=== PATIENT | female | born 1980 | race Caucasian/White ===

== ENCOUNTER 2021-11-06 13:18 | Outpatient (CLI) | payer BC, OTHER, SELFPAY | END 2021-11-06 13:19 | disposition home or self-care (01) | PROVIDERS: Visit Provider Obstetrics & Gynecology | DX: Z01.812 Encounter for preprocedural laboratory examination (principal); N92.0 Excessive and frequent menstruation with regular cycle | CPT/HCPCS: 36415; 86850; 86900; 86901 ==

== ENCOUNTER 2021-11-13 00:27 | Day surgery (SDC) | payer BC, OTHER, SELFPAY ==
[2021-11-05 14:23] VITALS: BMI 31.6
--- NOTE | 2021-11-05 14:32 | PC.NURSE ---
Report to the Outpatient Waiting Room, entrance under the green pavilion located off [facility], at time _0600_ on date _[id number]_. OR Time: _0730_. - You and your visitor will be asked a series of questions to screen for COVID 19 for your protection. - Only one visitor is allowed at this time. - The patient visitor is requested to leave or wait in car when not with patient. - A mask is required within the hospital. Patients may have clear liquids (water, carbonated beverages, clear teas, apple juice) until 3 hours prior to surgery with a maximum of 20 ounces. - No food from midnight until time of surgery Take the following medications with a SIP of water the morning of surgery: __none Medications to discontinue per physician none Date to take last dose Please no make-up, nail romansh, hairspray, perfume, deodorant, or body powder the day of surgery. No jewelry (including any body piercings) or valuables the day of surgery, leave them at home. Please take a shower or bath the night before, or the morning of, surgery with an antibacterial soap. Wear comfortable, loose fitting clothing. Children are encouraged to wear pajamas. - Jewelry must be removed prior to entering the operating room. Rings and piercings that are not removed may be cut off. - The hospital will not accept responsibility for valuables. - Please leave all valuables, including medications, at home the day of surgery. If you are going home after surgery, a licensed parts delivery driver must drive you home. - NO public transportation without another adult. - We recommend that an adult stay with you for 24 hours following discharge. - We also recommend that you do not drive, make important decision, drink alcoholic beverages, or take any drugs that were not prescribed by your health care provider for at least 24 hours after your discharge time. Follow any additional instructions given to you from your surgeon. If you or anyone in your household have experienced Covid symptoms in the past week, please notify your surgeon or the nurse liaison at the phone number below for possible testing. Telephone instructions given to ____Patient and asked if any additional questions and then verbalized understanding. Patient advised to call surgeon office or pre surgery nurse liaison [phone] if any additional questions.
--- NOTE | 2021-11-12 10:16 | PCCCNOTE ---
Addendum entered by Erna Alvarado RN 11/12/21 20:36: Late entry: Discussed case with staffing account manager at 1230, she spoke with Zulema in Dr. Dunn's office, Primary denial have 7 times to set up peer to peer and leave messages which are returned after hours. Patient has tried calling with no avail. Secondary insurance has approved, Zulema to send approval via fax, Patient wants to proceed based on secondary insurance approval. Phone call received from Zulema directly at 1600 provides same information and that she has faxed over everything to care coordination office per Nova's request. Spoke with Perri in [place] she states faxes received and given to Nova. Original Note: Called to Dr. Dunn's office at [phone], spoke w/ customer service receptionist who transferred the call to Zulema the precert specialist, left vm message requesting call back regarding precert notes that precert was denied due to not being medically necessary, requested a call back and provided call back number.
--- NOTE | 2021-11-12 11:00 | WPDANESEPPF ---
Anes - Initial Pre Proc Eval Procedure: Operation Date: 11/13/21 07:30 Proposed Procedures p Total Laparoscopic Hysterectomy with Bilateral Salpingectomy - Domi Dunn MD Date/Time: 11/12/21 11:00 Surgeon: Domi Dunn MD Pre Op Diagnosis: Menorrhagia Patient Data Age: 41 Gender: F Height: 1.65 m Weight: 86.4 kg Allergies Allergy/AdvReac Type Severity Reaction Status Date / Time No Known Allergies Allergy Verified 11/13/21 06:24 Home Medications Medication Instructions Recorded Confirmed Type No Home Medications 11/05/21 11/13/21 History Patient hx anesthesia problems: none Family hx anesthesia problems: none Results Review: All pre-operative results and documents have been reviewed as part of the pre-operative evaluation. [facility] Past Medical History Medical History (Updated 11/12/21 @ 11:00 by Cedrick Jean MD) Obesity Social History Social History Years smoked: 2 Smoking status: Former smoker Tobacco type: cigarettes Living arrangements: with family Spiritual care concerns: No Anes - Eval Final PreProcedure Day of Procedure 11/12/21 11:00 Patient weight: obese Heart: regular rate and rhythm Lungs: clear to auscultation Airway: Mallampati scale class II Neurological: alert and oriented Last oral intake: >/= 8 hours ASA classification: II Emergent: no Anesthetic plan: proceed Anesthesia type and monitoring: general ETT and standard monitoring Results Review: All pre-operative results and documents have been reviewed as part of the pre-operative evaluation. Informed Consent: The patient's anesthetic plan and its attendant risks and benefits were discussed with the patient/family/POA. Questions were solicited and answers provided to the satisfaction of the patient/family/POA.
--- NOTE | 2021-11-12 20:43 | PCCCNOTE ---
Secondary Insurance Approval on file: Auth outpatient [id number]
[2021-11-13] VITALS (13 sets, daily range): BP systolic 109–139; BP diastolic 52–85; PULSE 68–108; RESP 14–22; TEMP 36.3–37.5; O2SAT 96–100
[2021-11-13] MEDS: ACETAMINOPHEN 500 MG TABLET 1000 MG PO (06:43)
[2021-11-13] MEDS: LACTATED RINGERS 1,000 ML 30 ML IV CONT ×2 (06:50→09:34)
[2021-11-13] MEDS: KETOROLAC 15 MG/ML VIAL (*BKC) IV PUSH (07:02)
--- NOTE | 2021-11-13 07:15 | WPDHPUPDATE1 ---
History and Physical Update Update Date/Time: 11/13/21 07:15 History and Physical has been reviewed, including an updated exam of the patient. There are NO changes in the patient's condition. Risks, benefits, and alternatives have been discussed and questions answered. Patient agrees to proceed with procedure.
[2021-11-13] MEDS: ceFAZolin 2 GM/D5W 50 ML 2 GM/50 ML BAG IVPB (07:29)
[2021-11-13] MEDS: ceFAZolin SODIUM 1 GM VIAL 3 GM IRRIGATION (08:47)
--- NOTE | 2021-11-13 09:16 | SUR.OPER ---
EBL: 100cc
--- NOTE | 2021-11-13 09:22 | SUR.OPER ---
URINE: 350cc
--- NOTE | 2021-11-13 09:27 | W.PM.PROC2 ---
Procedure Note - Detailed Date of Procedure 11/13/21 Pre-op Diagnosis Menorrhagia Post-op Diagnosis Same Procedure Performed Total laparoscopic hysterectomy and bilateral salpingectomy Surgeon Domi Dunn MD Anesthesia General Indications Menorrhagia Findings Normal appearing uterus and ovaries, normal-appearing tubes and pelvis. Description of Procedure This patient was taken to the operating room. She was prepped and draped in the dorsal lithotomy position after induction of general anesthesia. The uterine manipulator and Uday cup were placed. This was done with a speculum and tenaculum. The speculum was placed. The cervix was grasped with a tenaculum. The stay sutures were placed at 3 and 9:00 a.m.. The stay sutures of 0 Vicryl were brought through the appropriately sized Uday cup. The tip of the VIVIANE manipulator was placed in the intrauterine cavity. The cup was slid into place around the cervix and into the fornices. It was locked into place. The sutures were then wrapped around the handle and tied under tension. A 5 mm skin incision was made in the left upper quadrant the abdomen. A 5 mm trocar was inserted into the intrauterine cavity under direct visualization of the scope. Pneumoperitoneum was achieved. A left lower quadrant 11 mm incision was made with scalpel. An 11 mm trocar was inserted into the anterior abdominal cavity under direct visualization the scope. A 5 mm infraumbilical incision was made with a scalpel and a 5 mm trocar was inserted the intra-abdominal cavity under direct visualization of the scope. Bilateral ureteral lysis was performed. This was done from the pelvic brim down to the uterine artery. This was done with careful dissection using sharp and blunt dissection. The fallopian tubes were removed bilaterally. The mesosalpinx around the fallopian tubes were cauterized transected with LigaSure cautery. This was done in a bilateral fashion from the ovary to the uterine cornua. The fallopian tube was transected at the uterine cornu and amputated. The tube was taken out the left lower quadrant trocar site. In a stepwise fashion along the lateral aspects of the uterus the round ligament and broad ligaments were cauterized transected down to the level of the uterine arteries. A bladder flap was created in the bladder was moved distally to the end of the cervix and over the Uday cup. The bilateral uterine arteries were cauterized and transected. Colpotomy was then performed. In a circumferential fashion the vagina was transected using unipolar cautery. The incision was made down on the Uday cup. The uterus and cervix were taken out through the vagina. A pneumo occluder was placed in the vagina. The vaginal cuff was closed with a 0 V lock suture in a running fashion. The pelvis was irrigated with copious amounts antibiotic irrigation. The ureters were again examined and found to be intact and flowing freely under the uterine arteries into the bladder. The bladder was intact. It was examined directly. The vagina was irrigated with Betadine solution after removal of the Pneumo occluder. The patient was taken to recovery room. She was stable condition. Sponge lap and needle counts were correct x2. Estimated Blood Loss 100 Drains Yes Packing No Pathology Yes Complications No immediate complications Condition Stable Disposition Floor
[2021-11-13] MEDS: HYDROcodone/acetaminophen (*CRX) 5-325 MG TABLET 1 TAB PO (11:11)
[2021-11-13] MEDS: DEXTROSE 5%/0.45% SOD CHL 1,000 ML 125 ML IV CONT ×2 (11:12→18:56)
--- NOTE | 2021-11-13 11:20 | OBPPTRN ---
1052 Patient transferred to post room #280 via bed. Support person present. Oriented to unit, room, information board, admission packet and security measures. Patient verbalizes understanding.
[2021-11-13] MEDS: KETOROLAC 30 MG/ML VIAL (*BKC) IV PUSH (12:51)
[2021-11-13] MEDS: HYDROcodone/acetaminophen (*CRX) 10-325 MG TABLET 1 TAB PO ×3 (15:07→22:07)
[2021-11-14 04:40] VITALS: BP 121/71; PULSE 98; RESP 16; TEMP 36.8
--- NOTE | 2021-11-14 07:00 | PC.NURSE ---
Pt introductions made and plan of care discussed per post op ratchet setter surgery, pain management, daily care activities and pending discharge to home. PT and spouse both recipients of such instructions and no barriers to learning identified at this time. PT received instructions this shift via one to one discussion and demonstrations. PT verbalized understanding of such care.
--- NOTE | 2021-11-14 07:19 | PM.GYNPNOP ---
HUMAN RESOURCES MANAGER - A/P Postoperative Procedures: Procedures Operation Date: 11/13/21 07:30 Actual Procedure Side Surgeon p Total Laparoscopic Hysterectomy with Bilateral Salpingectomy Bilateral Domi Dunn MD Postoperative day: 1 Postoperative status: doing well Postoperative plan: see orders Time Spent With Patient Time: Total time spent is greater than 50% in coordination of care (as documented) at patient's floor/unit and/or counseling patient: Time with patient: less than 15 minutes HUMAN RESOURCES MANAGER- PN:Subj Post-Op Subjective Date/time seen: 11/14/21 07:19 Subjective: patient reports feeling better, patient has no complaints and pain is well controlled Exam Const: General: healthy appearing, comfortable and no acute distress Resp: Auscultation: clear to auscultation bilaterally, no rales, no rhonchi and no wheezes Cardio: Rate: regular rate Heart sounds: no click, no murmurs and no rubs GI: Inspection: non-distended Auscultation: normal bowel sounds Extrem: General: normal to inspection, no pedal edema and no calf tenderness HUMAN RESOURCES MANAGER - PN: Obj Data Vital Signs Vital Signs: Vital Signs - 24 hr 11/13/21 07:24 11/13/21 09:34 11/13/21 09:45 Temperature 99.5 F 97.9 F Pulse Rate 77 71 68 Respiratory Rate 20 14 16 Blood Pressure 114/61 109/52 L 112/69 Pulse Oximetry 100 98 100 Oxygen Delivery Room Air Simple Face Mask Simple Face Mask Oxygen Flow Rate 6 6 11/13/21 10:00 11/13/21 10:07 11/13/21 10:15 Temperature Pulse Rate 73 82 Respiratory Rate 20 20 Blood Pressure 117/80 120/62 Pulse Oximetry 100 100 99 Oxygen Delivery Simple Face Mask Room Air Room Air Oxygen Flow Rate 6 11/13/21 10:30 11/13/21 10:44 11/13/21 10:52 Temperature 97.4 F L Pulse Rate 80 88 81 Respiratory Rate 20 20 22 H Blood Pressure 125/79 122/65 139/84 Pulse Oximetry 96 96 97 Oxygen Delivery Room Air Room Air Oxygen Flow Rate 11/13/21 12:48 11/13/21 15:07 11/13/21 15:07 Temperature 97.8 F 98.5 F Pulse Rate 97 108 H Respiratory Rate 19 21 H Blood Pressure 122/85 131/81 Pulse Oximetry 98 98 Oxygen Delivery Room Air Oxygen Flow Rate 06/01/22 19:00 11/13/21 19:00 11/13/21 23:00 Temperature 98.5 F 97.3 F L Pulse Rate 104 H 94 Respiratory Rate 16 16 Blood Pressure 114/73 124/78 Pulse Oximetry Oxygen Delivery Room Air Oxygen Flow Rate 11/13/21 23:00 11/14/21 04:40 11/14/21 04:40 Temperature 98.2 F Pulse Rate 98 Respiratory Rate 16 Blood Pressure 121/71 Pulse Oximetry Oxygen Delivery Room Air Room Air Oxygen Flow Rate Intake/Output Intake/Output: Intake & Output 11/11/21 11/12/21 11/13/21 11/14/21 23:59 23:59 23:59 23:59 Intake Total 1750 1600 Output Total 2710 400 Balance -960 1200 Meds/Results Medications: Active Medications Generic Name Dose Route Start Last Admin Trade Name Freq PRN Reason Stop Dose Admin Hydrocodone Bitart/Acetaminophen 1 tab 11/13/21 09:29 11/13/21 11:11 Hydrocodone/Acetaminophen (*Crx) 5-325 Mg Tablet PO 1 tab Q3H PRN Administration Pain Rated 5 or Less Hydrocodone Bitart/Acetaminophen 1 tab 11/13/21 09:29 11/13/21 22:07 Hydrocodone/Acetaminophen (*Crx) 10-325 Mg Tablet PO 1 tab Q3H PRN Administration Pain Rated 6 or Greater Ibuprofen 600 mg 11/13/21 09:29 Ibuprofen 600 Mg Tablet PO Q6H PRN Cramping Ketorolac Tromethamine 30 mg 11/13/21 09:29 11/13/21 12:51 Ketorolac 30 Mg/Ml Vial (*Bkc) IV PUSH 11/18/21 09:28 30 mg Q6H PRN Administration Pain Rated 4-6 Naloxone HCl 0.1 mg 11/13/21 09:29 Naloxone Hcl 0.4 Mg/Ml Vial IV PUSH Q2M PRN Respiratory rate less than 10 Ondansetron HCl 4 mg 11/13/21 09:29 Ondansetron Inj 4 Mg/2 Ml Vial IV PUSH Q6H PRN Nausea And Vomiting
[2021-11-14 07:25] VITALS: BP 119/71; PULSE 94; RESP 16; TEMP 37.1; O2SAT 99
[2021-11-14] MEDS: HYDROcodone/acetaminophen (*CRX) 10-325 MG TABLET 1 TAB PO (07:39)
[2021-11-14 07:40] VITALS: PULSE 94; RESP 16; O2SAT 99
[2021-11-14] MEDS: IBUPROFEN 600 MG TABLET PO (07:40)
--- NOTE | 2021-11-14 09:22 | WPDANESPN ---
Anes - Prog Note Post-Op Date/Time: 11/14/21 09:22 Cardiovascular status: normal Respiratory status: normal Airway patency: baseline Mental status: baseline Post-Op hydration status: normal Vital Signs: Last Vital Signs Temp 37.1 C 11/14/21 07:25 Pulse 94 11/14/21 07:25 Resp 16 11/14/21 07:25 BP 119/71 11/14/21 07:25 Pulse Ox 99 11/14/21 07:25 O2 Del Method Room Air 11/14/21 04:40 O2 Flow Rate 6 11/13/21 10:00 Pain Score (VAS): 06/24 I/O: Intake & Output 11/13/21 11/14/21 11/14/21 23:59 07:59 15:59 Intake Total 1250 1600 Output Total 2600 600 Balance -1350 1000 Post-procedural complaints: none Patient Feedback: Patient satisfied with anesthetic care.
--- NOTE | 2021-11-14 11:00 | PC.NURSE ---
PT received discharge instructions per protocol and verbalized understanding of such care.
--- NOTE | 2021-11-14 11:27 | PC.NURSE ---
Pt discharged to home via wheelchair to waiting car accompanied by spouse. Follow up appt scheduled for 11/20. PT confirmed follow up appointments.
== END 2021-11-14 11:27 | disposition home or self-care (01) ==
LOC: ANHSURGERY 06:16 → ANHOB2 10:50
PROVIDERS: Visit Provider Obstetrics & Gynecology
PROC: 0UT9FZZ Resection of Uterus, Via Natural or Artificial Opening With Percutaneous Endoscopic Assistance (ICD-10-PCS; CPT 58571; principal; 2021-11-13 07:30)
DX: N92.0 Excessive and frequent menstruation with regular cycle (principal); N80.0 Endometriosis of uterus; D25.1 Intramural leiomyoma of uterus; Z87.891 Personal history of nicotine dependence; E66.9 Obesity, unspecified; Z68.32 Body mass index [BMI] 32.0-32.9, adult
CPT/HCPCS: 58571; 88307; 99199; A9270; J0690; J1100; J1170; J1885; J2250; J2405; J2704; J3010; J7030; J7120